=== PATIENT | male | born 1960 | race Caucasian/White ===

== ENCOUNTER → 2020-11-17 | Outpatient (CLI) | payer MEDICARE ==
[~2020-11-17] MED LIST: ASPIRIN EC81 MG PO; DIOVAN 80 MG TA80 MG PO; MAG-OX 400 TAB400 MG PO; MEGACE TAB 20 M20 MG PO; ONDANSETRON ODT4 MG SL; REGLAN10 MG PO; STOOL SOFTENER250 MG PO; TENORMIN 25 MG25 MG PO
== END ==
LOC: CT 09:39
PROVIDERS: General Practice
DX: R91.1 Solitary pulmonary nodule (principal); N18.9 Chronic kidney disease, unspecified; R91.8 Other nonspecific abnormal finding of lung field
CPT/HCPCS: 36415; 71260; 80053; Q9963

== ENCOUNTER → 2021-07-18 | Outpatient (CLI) | payer MEDICARE | LOC: US 10:10 → CT 11:30 | DX: K76.0 Fatty (change of) liver, not elsewhere classified (principal); R74.8 Abnormal levels of other serum enzymes; N18.9 Chronic kidney disease, unspecified | CPT/HCPCS: 76700 ==